=== PATIENT | female | born 1995 | race Caucasian/White ===

== ENCOUNTER 2019-03-03 20:28 | Emergency (ER) | payer SELFPAY ==
[2019-03-03] MEDS ORDERED: DIPH/PERTUSS(ACELL)/TETANUS VAC/PF 0.5 ML SYR (>=10YO) IM ONE (22:12)
[2019-03-03] MEDS ORDERED: AMOXICILLIN TR/POT CLAVULANATE 500-125 MG TAB PO ONE (22:12)
[2019-03-03] MEDS ORDERED: HYDROCODONE/ACETAMINOPHEN 5-325 MG TABLET PO ONE (22:22)
--- NOTE | 2019-03-03 22:22 | ER Document Report ---
ED Extremity Problem, Lower - General Chief Complaint: Laceration Stated Complaint: LEFT HEEL LACERATION Time Seen by Provider: 03/03/19 21:59 Mode of Arrival: Ambulatory Information source: Patient Notes: 23-year-old female presented to ED for complaint of laceration to her left heel after she was walking in the ocean earlier today she states she got oyster shells in her heel. She went to urgent care they told her to go to the emergency room and get it sutured. She states they cleaned it bandaged and sent her home. She states she cleaned out some more at home and then came to the [facility] room. Patient is alert oriented respirations regular and unlabored speaking in full sentences. She states her tetanus is not up-to-date. - HPI Patient complains to provider of: Injury Location: Foot - Left heel Occurred: This afternoon Where: Outdoors, Public place - Walking in the ocean Quality of pain: Sharp, Throbbing Severity: Moderate Pain Level: 4 Context: Laceration, Other - Walking on oyster shells in the ocean Recent injury: Yes Associated symptoms: Painful ambulation Exacerbated by: Movement, Walking Relieved by: Elevation, Rest - Related Data Allergies/Adverse Reactions: No Known Allergies Allergy (Unverified 03/03/19 20:32) Past Medical History - General Information source: Patient - Social History Smoking Status: Current Every Day Smoker Cigarette use (# per day): Yes - Half pack per day Chew tobacco use (# tins/day): No Smoking Education Provided: Yes - 4 minutes Frequency of alcohol use: Social Drug Abuse: None 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 Lives with: Family Family History: Reviewed & Not Pertinent Patient has suicidal ideation: No Patient has homicidal ideation: No - Past Medical History Cardiac Medical History: Reports: None Pulmonary Medical History: Reports: Hx Asthma EENT Medical History: Reports: None Neurological Medical History: Reports: None Endocrine Medical History: Reports: None Renal/ Medical History: Reports: None Malignancy Medical History: Reports: None GI Medical History: Reports: None Musculoskeletal Medical History: Reports None Skin Medical History: Reports None Psychiatric Medical History: Reports: None Traumatic Medical History: Reports: None Infectious Medical History: Reports: None Past Surgical History: Reports: Hx Adenoidectomy, Hx Appendectomy, Hx Cholecystectomy, Hx Myringotomy - 8 sets, Hx Oral Surgery, Hx Tonsillectomy - adnoidectomy - Immunizations Immunizations up to date: Yes Hx Diphtheria, Pertussis, Tetanus Vaccination: Yes - 03/03/2019 Review of Systems - Review of Systems Constitutional: No symptoms reported EENT: No symptoms reported Cardiovascular: No symptoms reported Respiratory: No symptoms reported Gastrointestinal: No symptoms reported Genitourinary: No symptoms reported Female Genitourinary: No symptoms reported Musculoskeletal: No symptoms reported Skin: Other - Laceration to the left heel with oyster shells removed 6 pieces Hematologic/Lymphatic: No symptoms reported Neurological/Psychological: No symptoms reported -: Yes All other systems reviewed and negative Physical Exam - Vital signs Vitals: Temp Pulse Resp BP Pulse Ox 98.1 F 110 H 20 131/70 H 100 03/03/19 20:38 03/03/19 20:38 03/03/19 20:38 03/03/19 20:38 03/03/19 20:38 Interpretation: Normal - General General appearance: Appears well, Alert - HEENT Head: Normocephalic, Atraumatic Eyes: Normal Pupils: PERRL - Respiratory Respiratory status: No respiratory distress Chest status: Nontender Breath sounds: Normal Chest palpation: Normal - Cardiovascular Rhythm: Regular Heart sounds: Normal auscultation Murmur: No - Abdominal Inspection: Normal Distension: No distension Bowel sounds: Normal Tenderness: Nontender Organomegaly: No organomegaly - Back Back: Normal, Nontender - Extremities General upper extremity: Normal inspection, Nontender, Normal color, Normal ROM, Normal temperature General lower extremity: Normal inspection, Nontender, Normal color, Normal ROM, Normal temperature, Normal weight bearing. No: Hill's sign - Neurological Neuro grossly intact: Yes Cognition: Normal Orientation: AAOx4 Melina Coma Scale Eye Opening: Spontaneous [place] Coma Scale Verbal: Oriented Melina Coma Scale Motor: Obeys Commands Melina Coma Scale Total: 15 Speech: Normal Motor strength normal: LUE, RUE, LLE, RLE Sensory: Normal - Psychological Associated symptoms: Normal affect, Normal mood - Skin Skin Temperature: Warm Skin Moisture: Dry Skin Color: Normal Skin irregularity: Laceration - Removed 6 pieces of oyster shell from the laceration Location of irregularity: Extremities - Left heel Character of irregularity: Linear Irregularity with: Tenderness Course - Re-evaluation Re-evalutation: 03/03/19 22:[address] Damon. She agreed we do not suture a laceration caused by oyster shells. Patient was treated with tetanus immunization and Augmentin and discharged home with instructions for Epson salt elevation and follow-up with primary care. - Vital Signs Vital signs: Temp Pulse Resp BP Pulse Ox 98.1 F 110 H 20 131/70 H 100 03/03/19 20:38 03/03/19 20:38 03/03/19 20:38 03/03/19 20:38 03/03/19 20:38 Procedures - Immobilization Left Foot Time completed: 22:38 Immobilizer type: Crutches Performed by: PCT Post-Proc Neuro Vasc Exam: Normal Alignment checked and good: Yes - Laceration/Wound Repair Left heel Time completed: 22:37 Wound length (cm): 3 Wound's Depth, Shape: Linear Laceration pre-procedure: Shur-Clens applied Anesthetic type: Other Volume Anesthetic (mLs): 0 Wound explored: Contaminated, Foreign body removed Irrigated w/ Saline (mLs): 100 Wound Repaired With: Other - Did not repair wound due to it being oyster cell laceration to the heel Post-procedure wound care: Sterile dressing applied Post-procedure NV exam normal: Yes Discharge - Discharge Clinical Impression: heel laceration from oyster shells Condition: Stable Disposition: HOME, SELF-CARE Instructions: Family Physicians / Practices Additional Instructions: Foot Laceration A laceration on the foot will heal best if it remains undisturbed. Pressure on the stitch area from shoes or walking can prevent proper healing. Crutches are necessary if walking causes discomfort. Do not wear shoes that put pressure on the cut. If your feet tend to sweat, you must change the bandage frequently, allowing the area to dry before placing the new bandage. Keep the wound and dressing clean. Do not shower or bathe the area. If the dressing gets wet, remove it and blot the wound dry, then reapply a clean, dry dressing. Dressings should be changed every day, or even two or three times daily if your feet sweat. If any signs of infection occur (swelling, redness, increasing tenderness, red streaks, tender lumps in the groin above the laceration, or fever), see the doctor immediately. Epsom Salt Soaks Soak the wound area in a container of warm epsom salt water. If you can't get the wound area into a bucket or dominguez, use a folded towel soaked in the epsom salt solution and apply to the area. Use clean hot tap water (about the temperature of a very warm bath), mixing in about one (1) teaspoon for every pint of water. Two gallon --> 16 teaspoons Epsom Salts One gallon --> 8 teaspoons Epsom Salts Two quarts --> 4 teaspoons Epsom Salts One quart --> 2 teaspoons Epsom Salts Soak the wound for about 20 minutes while gently moving it around in the water. Repeat this four (4) times a day. Augmentin Augmentin is a mixture of amoxicillin and clavulanate. Amoxicillin is a member of the penicillin family. It covers the germs likely to cause ear, bronchial, and urinary infections better than plain penicillin. The addition of clavulanate allows it to cover staph infections of the skin, as well as resistant cases of ear and sinus infections. Your physician has chosen Augmentin for you because of the special nature of your situation. Augmentin is best taken with meals. Nausea after taking the medication is rare, but can occur. Diarrhea can occur, particularly in small children. Vaginal yeast infections, and oral thrush in infants are also common. Contact your physician if these problems occur. Allergy to penicillins is common. If you have had an allergic reaction to any drug of the penicillin family, you should never take any other penicillin. Notify your doctor at once if you develop hives, shortness of breath, swelling, or faintness. Oral Narcotic Medication You have been given a Sher[place] for pain control. This medication is a narcotic. It's best taken with food, as nausea can result if taken on an empty stomach. Don't operate machinery or drive within six hours of taking this medication. Do not combine this medicine with alcohol, or with any medication which can cause sedation (such as cold tablets or sleeping pills) unless you get permission from the physician. Narcotics tend to cause constipation. If possible, drink plenty of fluids and eat a diet high in fiber and fruits. Antibiotic Ointment Protection Your wounds are such that dressing them is not practical or optional. After cleansing, you should apply a thin coating of antibiotic ointment (Bacitracin, not Neosporin) to the wounds at least three times daily. This lessens infection risk, and may decrease the amount of scarring. Use a q-tip or dull butter knife, not your finger, to apply this ointment. Any debris or ooze which builds up in the ointment should be gently rubbed off with a sterile gauze pad. Harder crusting may need to be gently scrubbed off with a clean wash cloth with soap and warm water, perhaps applying a warm, wet wash cloth to the wound for ten minutes first. Development of redness, severe itching, or blistering may mean allergy to the ointment. See the doctor. Tetanus Immunization Given You have been given an immunization against tetanus. Please record this in your records. In general, a booster is needed only once every 10 years. The tetanus shot protects against tetanus or "lockjaw," which is a complication of certain wound infections (the tetanus shot cannot protect against the actual infection). The immunization site may become warm and red due to local reaction. If this occurs, apply warm compresses and take aspirin or ibuprofen to reduce inflammation and discomfort. Return for evaluation if the reaction becomes severe. FOLLOW-UP CARE: If you have been referred to a physician for follow-up care, call the physicians office for an appointment as you were instructed or within the next two days. If you experience worsening or a significant change in your symptoms, notify the physician immediately or return to the Emergency Department at any time for re-evaluation. Prescriptions: Amox Tr/Potassium Clavulanate [Augmentin 875-125 Tablet] 1 tab PO BID 10 Days tablet Forms: Elevated Blood Pressure, Smoking Cessation Education, Return to Work
[2019-03-03 22:34] VITALS: BP 129/86
== END 2019-03-03 22:36 | disposition home or self-care (01) ==
LOC: ER 20:28
DX: S91.312A Laceration without foreign body, left foot, initial encounter (principal); F17.210 Nicotine dependence, cigarettes, uncomplicated; W26.8XXA Contact with other sharp object(s), not elsewhere classified, initial encounter; Z23 Encounter for immunization; Z90.49 Acquired absence of other specified parts of digestive tract
CPT/HCPCS: 90471; 90715; 99282; 99406

== ENCOUNTER 2019-03-06 12:19 | Emergency (ER) | payer SELFPAY ==
--- NOTE | 2019-03-06 13:39 | ER Document Report ---
Addendum entered and electronically signed by MOHINI DE SOUZA PA-C 03/13/19 14:13: Discharge - Discharge Clinical Impression: Laceration of right foot with foreign body Qualifiers: Encounter type: subsequent encounter Qualified Code(s): S91.321D - Laceration with foreign body, right foot, subsequent encounter Condition: Good Disposition: HOME, SELF-CARE Additional Instructions: You were seen in the emergency department this afternoon for a follow-[place]. X-ray did show very small radial opaque retained fragments but after discussing with other physicians there is nothing to do and they will eventually worked themselves out. You can continue to soak it periodically but this will delay healing. You can place antibiotic ointment on it 3 times a day and you can cover it with a dry dressing. Please return to the emergency department if you develop fever, the wound gets red, purulent discharge comes from the wound, red streaks start moving up your leg, or you have any other concerning symptoms. Forms: Return to Work Addendum entered and electronically signed by MOHINI DE SOUZA PA-C 03/06/19 15:11: Discharge - Discharge Clinical Impression: Laceration of right heel Qualifiers: Encounter type: subsequent encounter Qualified Code(s): S91.311D - Laceration without foreign body, right foot, subsequent encounter Condition: Good Disposition: HOME, SELF-CARE Additional Instructions: You were seen in the emergency department this afternoon for a follow-up [place] your [place] the beach. X-ray did show very small radial opaque retained fragments but after discussing with other physicians there is nothing to do and they will eventually worked themselves out. You can continue to soak it periodically but this will delay healing. You can place antibiotic ointment on it 3 times a day and you can cover it with a dry dressing. Please return to the emergency department if you develop fever, the wound gets red, purulent discharge comes from the wound, red streaks start moving up your leg, or you have any other concerning symptoms. Forms: Return to Work Addendum entered and electronically signed by MOHINI DE SOUZA PA-C 03/06/19 14:58: Discharge - Discharge Clinical Impression: Laceration of right heel Qualifiers: Encounter type: subsequent encounter Qualified Code(s): S91.311D - Laceration without foreign body, right foot, subsequent encounter Condition: Good Disposition: HOME, SELF-CARE Additional Instructions: You were seen in the emergency department this afternoon for a follow-up from your [place] the beach. X-ray did show very small radial opaque retained fragments but after discussing with other physicians there is nothing to do and they will eventually worked themselves out. You can continue to soak it periodically but this will delay healing. You can place antibiotic ointment on it 3 times a day and you can cover it with a dry dressing. Please return to the emergency department if you develop fever, the wound gets red, purulent discharge comes from the wound, red streaks start moving up your leg, or you have any other concerning symptoms. Original Note: HPI - HPI Patient complains to provider of: R foot pain follow up Time Seen by Provider: 03/06/19 13:26 Pain Level: 2 Context: 23-year-old healthy female returns to the emergency department after being seen here 2 days ago for a superficial laceration on her right heel. She is concerned because she still thinks there are retained fragments. She was placed on Augmentin and initially the wound was soaked and explored. Patient states that last night she was digging at it and pull out a couple of small retained fragments and she was concerned and return to the emergency department for treatment. - REPRODUCTIVE Reproductive: DENIES: : Past Medical History - Social History Smoking Status: Never Smoker Family History: Reviewed & Not Pertinent Pulmonary Medical History: Reports: Hx Asthma Renal/ Medical History: Denies: Hx Peritoneal Dialysis Past Surgical History: Reports: Hx Adenoidectomy, Hx Appendectomy, Hx Cholecystectomy, Hx Myringotomy - 8 sets, Hx Oral Surgery, Hx Tonsillectomy - adnoidectomy - Immunizations Immunizations up to date: Yes Hx Diphtheria, Pertussis, Tetanus Vaccination: Yes - 03/03/2019 Vertical Provider Document - CONSTITUTIONAL Notes: PHYSICAL EXAMINATION: Reviewed vital signs and charting by RN GENERAL: Alert, interacts well. No acute distress. HEAD: Normocephalic, atraumatic. EYES: Pupils equal and round. Extraocular movements intact. ENT: Oral mucosa moist, tongue midline. NECK: Full range of motion. Trachea midline. EXTREMITIES: Moves all 4 extremities spontaneously. No edema, No cyanosis. Small linear laceration on the plantar surface of patient's right heel approxi mately 3 cm long healing well, no erythema, no purulent discharge, edges of the wound are starting to granulate, no active bleeding. PSYCH: Normal affect, normal mood. SKIN: Warm, dry, normal turgor. No rashes or lesions noted. - INFECTION CONTROL TRAVEL OUTSIDE OF THE [place] IN LAST 30 DAYS: No Course - Re-evaluation Re-evalutation: 03/06/19 13:37 Patient is concerned because she thinks there is still retained fragments in the wound, so I ordered a foot x-ray to put her mind at ease. Patient given appropriate therapy and placed on Augmentin and there is no evidence of wound infection at this time. 03/06/19 14:44 X-ray showed small microscopic fragments of retained radiopaque pieces. Briefly discussed with attending physician and there is nothing to do at this point but to continue soaking. She is stable for discharge with strict return precautions. - Vital Signs Vital signs: Temp Pulse Resp BP Pulse Ox 98.1 F 87 20 129/87 H 100 03/06/19 12:23 03/06/19 12:23 03/06/19 12:23 03/06/19 12:23 03/06/19 12:23 Discharge - Discharge Clinical Impression: Laceration of right heel Qualifiers: Encounter type: subsequent encounter Qualified Code(s): S91.311D - Laceration without foreign body, right foot, subsequent encounter Condition: Good Disposition: HOME, SELF-CARE Additional Instructions: You were seen in the emergency department this afternoon for a follow-up from your [place] the beach. X-ray did not show any retained fragments and the wound looks good and is healing appropriately. You can continue to soak it periodically but this will delay healing. You can place antibiotic ointment on it 3 times a day and you can cover it with a dry dressing. Please return to the emergency department if you develop fever, the wound gets red, purulent discharge comes from the wound, red streaks start moving up your leg, or you have any other concerning symptoms.
--- NOTE | 2019-03-06 14:07 | RADIOLOGY REPORT (SQ) ---
EXAM DESCRIPTION: FOOT LEFT COMPLETE COMPLETED DATE/TIME: 03/06/2019 1:53 pm REASON FOR STUDY: foreign body heel COMPARISON: None. NUMBER OF VIEWS: Three views. TECHNIQUE: AP, lateral and oblique radiographic images acquired of the left foot. LIMITATIONS: None. FINDINGS: MINERALIZATION: Normal. BONES: No acute fracture or dislocation. No worrisome bone lesions. JOINTS: No effusions. SOFT TISSUES: On the lateral projection there are several small radiopaque foreign bodies. The large st measures 1.3 mm. These are seen on the lateral projection only. OTHER: No other significant finding. IMPRESSION: Small radiopaque foreign bodies overlying the site of injury. TECHNICAL DOCUMENTATION: JOB ID: [id number] [employer]- All Rights Reserved Reading location - IP/workstation name: [email or web address]
[2019-03-06 14:53] VITALS: BP 118/83
== END 2019-03-06 15:08 | disposition home or self-care (01) ==
LOC: ER 12:19
DX: S91.321A Laceration with foreign body, right foot, initial encounter (principal); W26.8XXA Contact with other sharp object(s), not elsewhere classified, initial encounter; J45.909 Unspecified asthma, uncomplicated
CPT/HCPCS: 99283

== ENCOUNTER → 2020-03-25 | Outpatient (CLI) | payer MEDICAID ==
--- NOTE | 2020-03-25 15:42 | RADIOLOGY REPORT (SQ) ---
EXAM DESCRIPTION: U/S [id number] TRNABD 1GES W/ODOP IMAGES COMPLETED DATE/TIME: 03/25/2020 3:14 pm REASON FOR STUDY: Z34.01 ENCNTR FOR SUPRVSN OF NORMAL FIRST PREG, FIRST TRIMESTER Z34.01 ENCNTR FOR SUPRVSN OF NORMAL FIRST PREG, FIRST TRIMES COMPARISON: None. TECHNIQUE: Transabdominal static and realtime grayscale images acquired of the pelvis. Additional se lected spectral and color Doppler images recorded. All images stored on PACs. bHCG: Not available. CLINICAL DATES: 8 weeks, 5 days LIMITATIONS: None. FINDINGS: FETUS: Single Living intrauterine . ULTRASOUND EGA: 9 weeks, 0 days ULTRASOUND [place]: 10/28/2020 EFW: Not applicable less than 20 weeks. CRL: 2.4 cm FHR: 173 beats per minute. SURVEY: Too early to assess. AMNIOTIC FLUID: Adequate amount. PLACENTA: Not yet developed due to early gestation. SUBCHORIONIC BLEED: No. SIZE OF BLEED: Not applicable. UTERUS: No masses. No anomalies. CERVICAL LENGTH: 2.4 cm Closed. RIGHT ADNEXA: Normal ovary with normal vascular flow. No adnexal free fluid. No adnexal masses. LEFT ADNEXA: Normal ovary with normal vascular flow. No adnexal free fluid. No adnexal masses. FREE FLUID: None. OTHER: No other significant finding. IMPRESSION: LIVING INTRAUTERINE . EGA 9 weeks, 0 days Trimester of : First trimester - 0 to 13 weeks. TECHNICAL DOCUMENTATION: JOB ID: [id number] [employer]- All Rights Reserved Reading location - IP/workstation name: [email or web address]
== END ==
LOC: RAD 14:39
PROVIDERS: ATTEND Midwife
DX: Z34.01 Encounter for supervision of normal first pregnancy, first trimester (principal)
CPT/HCPCS: 76801